=== PATIENT | male | born 1960 ===

== ENCOUNTER 2017-04-10 09:14 | Day surgery (SDC) | payer OTHER ==
[~2017-04-10] VITALS: Ht 163.8 cm; Wt 83.5 kg
[2017-04-10] MEDS ORDERED: AMLO5TAB PO (10:34)
[2017-04-10] MEDS ORDERED: METO25TA14 PO (10:34)
[2017-04-10] MEDS ORDERED: LIDOCAINE 2% 1000 MG/50 ML VIAL INJ ONE (11:35)
[2017-04-10 12:12] LABS: HEMATOCRIT 47.8 % (36-52); HEMOGLOBIN 16.1 g/dL (12.0-18.0); MEAN CORPUSCULAR HEMOGLOBIN 32 pg (27-31); MEAN CORPUSCULAR HGB CONC 34 g/dL (33-37); MEAN CORPUSCULAR VOLUME 95 fL (80-94); PLATELET COUNT (AUTO) 188 K/uL (140-450); RED BLOOD CELL COUNT(AUTO) 5.01 MIL/uL (4.20-6.10); RED CELL DISTRIBUTION WIDTH 12.2 % (11.6-13.7)
[2017-04-10 12:23] LABS: EOSINOPHILS % (MANUAL) 1 % (0-4); LYMPHOCYTES % (MANUAL) 40 % (20-46); MONOCYTES % (MANUAL) 5 % (5-12)
[2017-04-10 12:29] LABS: PROTHROMBIN TIME 12.1 secs (10.8-13.4)
[2017-04-10 12:34] LABS: TOTAL BILIRUBIN 0.7 mg/dL (0.0-1.0)
[2017-04-10 12:35] LABS: ALBUMIN 3.7 g/dL (3.4-5.0); BILIRUBIN,DIRECT 0.4 mg/dL (0.0-0.3)
== END 2017-04-10 14:05 | disposition home or self-care (01) ==
LOC: MDS 09:14 → MMU 09:21 → MDS 14:05
PROVIDERS: ATTEND Internal Medicine Gastroenterology
DX: B19.20 Unspecified viral hepatitis C without hepatic coma (principal); I10 Essential (primary) hypertension; K76.0 Fatty (change of) liver, not elsewhere classified; E66.09 Other obesity due to excess calories; Z68.31 Body mass index [BMI] 31.0-31.9, adult; Z79.899 Other long term (current) drug therapy
CPT/HCPCS: 36415; 47000; 76942; 80076; 85025; 85610; 85730; 87522; J2001; J7030; Q0092